=== PATIENT | female | born 1980 | race Hispanic/Latino ===

== ENCOUNTER 2025-02-14 13:40 | Emergency (ER) | payer OTHER, SELFPAY ==
--- NOTE | ~2025-02-14 | CT_ITS ---
CT brain wo con Ordering provider: Leonardo Wells MD History: 44 years Female with . fall . Comparison: None. Technique: CT of the head without contrast. Radiation reduction technique utilized.The dose-length product was 681 mGy-cm. FINDINGS: BRAIN PARENCHYMA AND CSF SPACES: No midline shift, mass effect or hemorrhage. The brain parenchyma a nd CSF spaces are otherwise normal. VISUALIZED PARANASAL SINUSES: Well aerated. MASTOIDS: Well aerated. BONES: The bones appear intact. SOFT TISSUES: Visualized nasopharynx is normal. Superficial soft tissues are normal. IMPRESSION: No acute intracranial findings. Reviewed, dictated and finalized at location A.
--- NOTE | ~2025-02-14 | XR_ITS ---
3 VIEWS LUMBAR SPINE Ordering provider: Leonardo Wells MD History: . fall . Comparison: None. FINDINGS: VERTEBRAL BODIES: No visible fracture or subluxation. Mild degenerative changes. DISK SPACES: Normal. SOFT TISSUES: Normal. IMPRESSION: No definite acute osseous abnormality lumbar spine. If still suspicious CT is advised. Reviewed, dictated and finalized at location A. IMPRESSION: No definite acute osseous abnormality lumbar spine. If still suspicious CT is a dvised.
--- NOTE | ~2025-02-14 | XR_ITS ---
XR sacrum coccyx min 2V Ordering provider: Leonardo Wells MD History: . fall; lower back pain . Comparison: None. FINDINGS: BONES: No acute fracture or dislocation. JOINTS: The sacroiliac joint spaces are normal. SOFT TISSUES: Normal. IMPRESSION: No acute osseous abnormality sacrum. Reviewed, dictated and finalized at location A.
--- NOTE | ~2025-02-14 | XR_ITS ---
XR hip RT 2V w AP pelvis Ordering provider: Conner Park MD History: . Fall . Comparison: None. FINDINGS: BONES: No acute fracture or dislocation. HIP JOINT SPACES: Narrowing of both hip joints with marginal osteophytes suggestive of mild osteoarth ritic changes. SACROILIAC JOINT SPACES/LUMBAR SPINE: The sacroiliac joint spaces are normal. Mild degenerative talley es of the visualized lower lumbar spine. PUBIC SYMPHYSIS: Normal. SOFT TISSUES: Normal. IMPRESSION: No acute osseous abnormality pelvis and right hip. Mild bilateral hip osteoarthritic changes. Reviewed, dictated and finalized at location A.
--- NOTE | ~2025-02-14 | CT_ITS ---
CT cervical spine w con Ordering provider: Leonardo Wells MD History: . fall . Comparison: None. Technique: CT of the cervical spine was performed without contrast. Sagittal and coronal reformatted images were also obtained and reviewed. Automated exposure control and iterative reconstruction clair hnique were employed. The dose-length product was 400.80 mGy-cm. FINDINGS: VERTEBRAE: No subluxation or acute fracture. The occipital condyles are intact. 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 Fracture is less likely. DISC SPACES: Normal. PARASPINOUS SOFT TISSUES: Normal. IMPRESSION: No acute osseous abnormality cervical spine. Reviewed, dictated and finalized at location A.
[2025-02-14 14:05] VITALS: BP 137/79; PULSE 70; RESP 16; TEMP 36.6; O2SAT 100
[2025-02-14] MEDS: ONDANSETRON INJ 4 MG/2 ML VIAL IV PUSH (17:23)
[2025-02-14] MEDS: MORPHINE SULFATE (*CRX) 4 MG/ML INJ IV PUSH (17:23)
--- NOTE | 2025-02-14 17:39 | ED_ITS ---
HPI - Fall General Chief Complaint: Fall Stated Complaint: Fall-hit Rt hip/head, No LOC Time Seen by Provider: 02/14/25 16:45 Source: patient, family and medical anthropology director Mode of arrival: ambulatory Limitations: no limitations History of Present Illness HPI Narrative: 44-year-old was brought in by EMS from work with the complaints of fall. As per the medical anthropology director patient slipped and fell on the ground. Her main complaint is pain in the sacral area. She is not quite sure whether she hit her head. No LOC but complains of feeling dizzy. MD complaint: fall Onset (ago): hour(s) (2) Fall from: standing Fall witnessed: yes, by living facility staff Prolonged down time: no Symptoms prior to fall: dizziness Context: tripped/slipped (Slipped on the wet floor) Location of injury: back ([place]ail[place]) Associated symptoms (after fall): denies Related Data Allergies Allergy/AdvReac Type Severity Reaction Status Date / Time Sulfa (Sulfonamide Allergy Intermediate Swelling Verified 02/14/25 13:42 Antibiotics) of Lip/Tongue/Throat Review of Systems Review of Systems: All systems reviewed & are unremarkable except as noted in HPI and below Constitutional: Constitutional: Reports no additional constitutional complaints Eyes: Eyes: Reports no additional eye complaints ENT: Reports system reviewed and no additional complaints, except as documented Cardiovascular: Cardiovascular: Reports no additional cardiovascular complaints Respiratory: Respiratory: Reports no additional respiratory complaints Gastrointestinal: Gastrointestinal: Reports no additional gastrointestinal complaints Musculoskeletal: Musculoskeletal: Reports as per HPI Integumentary/Breasts: Skin/Breast: Reports system reviewed and no additional complaints, except as docu Neurologic: Reports system reviewed and no additional complaints, except as documented Endocrine: Endocrine: Reports no additional endocrine complaints Exam Narrative: GENERAL: Well-appearing, well-nourished, and in no acute distress. HEAD: Normocephalic, atraumatic. EYES: PERRLA and EOMI. ENT: Nares clear, no rhinorrhea or epistaxis. Mucous membranes moist. NECK: Supple. In C-collar CHEST: Clear to auscultation. No respiratory distress. HEART: Regular rate and rhythm. No murmur heard. Normal peripheral pulses. ABDOMEN: Soft, nontender, nondistended, normal active bowel sounds. EXTREMITIES: Normal range of motion. No edema. SKIN: Warm, dry, no rash. NEURO: No focal deficits. Alert and oriented x3. PSYCH: Normal mood and affect. Course Course Emergency Course: Her pain is slightly improved with morphine. I did inform her and the family about her CT and x-ray findings. Advised to take pain medication as prescribed. Vital Signs Vital signs: Vital Signs Temperature 36.6 C 02/14/25 14:05 Pulse Rate 70 02/14/25 14:05 Respiratory Rate 16 02/14/25 14:05 Blood Pressure 137/79 02/14/25 14:05 Pulse Oximetry 100 02/14/25 14:05 Temperature 36.6 C 02/14/25 14:05 Pulse Rate 70 02/14/25 14:05 Respiratory Rate 16 02/14/25 14:05 Blood Pressure 137/79 02/14/25 14:05 Pulse Oximetry 100 02/14/25 14:05 MDM - Fall Imaging Data Radiologist's impression: ITS Impressions Hip/Pelvis X-Ray 02/14/25 16:48 IMPRESSION: No acute osseous abnormality pelvis and right hip. Mild bilateral hip osteoarthritic changes. Head CT 02/14/25 17:11 IMPRESSION: No acute intracranial findings. Cervical Spine CT 02/14/25 17:17 IMPRESSION: No acute osseous abnormality cervical spine. Lumbar Spine X-Ray 02/14/25 17:23 IMPRESSION: No definite acute osseous abnormality lumbar spine. If still suspicious CT is advised. Sacrum and Coccyx X-Ray 02/14/25 17:25 IMPRESSION: No acute osseous abnormality sacrum. Discharge Plan Discharge Clinical Impression: Minor head injury Qualifiers: Encounter type: initial encounter Qualified Code(s): S09.90XA - Unspecified injury of head, initial encounter Contusion of sacrum Qualifiers: Encounter type: initial encounter Qualified Code(s): S30.0XXA - Contusion of lower back and pelvis, initial encounter Patient Disposition: Home, Self-Care Condition: Stable Instructions: Antibiotic Form Patient Language: Bulgarian Prescriptions: New ibuprofen 600 mg tablet 600 mg PO Q6H PRN (Reason: pain) Qty: 30 0RF Follow-up/Referrals: PHYSICIAN,[employer]INE ADJUSTER [Primary Care Provider] - Matt To MD [Physician] - Time of Disposition: 17:44
[2025-02-14 18:01] VITALS: BP 136/80; PULSE 82; RESP 16; TEMP 36.6; O2SAT 100
== END 2025-02-14 18:03 | disposition home or self-care (01) ==
PROVIDERS: Emergency Provider Family Medicine
DX: S30.0XXA Contusion of lower back and pelvis, initial encounter (principal); S09.90XA Unspecified injury of head, initial encounter; W01.0XXA Fall on same level from slipping, tripping and stumbling without subsequent striking against object, initial encounter
CPT/HCPCS: 70450; 72100; 72126; 72220; 73502; 96374; 96375; 99284; J2270; J2405; Q9967